=== PATIENT | male | born 1935 | race Caucasian/White ===

== ENCOUNTER 2019-12-10 18:57 | Inpatient (IN) | payer MEDICARE, SELFPAY ==
--- NOTE | ~2019-12-10 | CT_ITS ---
EXAMINATION: CT brain wo con DATE: 12/10/2019 20:23 INDICATION: Fall and altered mental status. TECHNIQUE: Computed tomography (CT) of the head was performed without intravenous contrast. Sagittal and coronal reconstructions were performed. The mA was adjusted according to patient size. Iterative reconstruction technique was employed. The dose-length product was 1513.33 mGy-cm. COMPARISON: head CT dated 12/09/18 FINDINGS: Evaluation is somewhat limited by motion artifact on both initial and repeat images. No fracture. Unc hanged small old lacunar infarcts at the left caudate and lentiform nuclei. No acute intracranial hem orrhage, acute infarction or abnormal extra axial fluid collection. There is mild scattered white mat ter hypoattenuation consistent with chronic small vessel ischemic disease. Symmetric prominence of th e sulci and ventricles consistent with moderate age-appropriate diffuse cerebral volume loss. No mass /mass effect. Changes of bilateral intraocular lens replacement. Orbits and paranasal sinuses are nor mal. Unchanged left mastoid effusion and new trace right mastoid effusion. IMPRESSION: 1. No fracture or acute intracranial process. 2. 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 3. Age-related changes including moderate diffuse loss and mild scattered white matter hypoattenuatio n consistent with chronic small vessel ischemic disease. Reviewed, dictated and finalized at location A. IMPRESSION: 1. No fracture or acute intracranial process. 2. Unchanged small old lacunar infarcts at the left caudate and lentiform nucle i. 3. Age-related changes including moderate diffuse loss and mild scattered white matter hypoattenuation consistent with chronic small vessel ischemic disease.
--- NOTE | ~2019-12-10 | XR_ITS ---
EXAMINATION: XR chest 1V portable DATE: 12/10/2019 21:01 INDICATION: Fall with transient alteration of awareness and hip fracture TECHNIQUE: frontal view of the chest was obtained. COMPARISON: Chest radiograph dated 03/12/2018 FINDINGS: Calcified biapical pleural-parenchymal scarring. A couple small bilateral calcified pulmonary nodules consistent with old granulomatous disease. No other airspace opacities, pulmonary edema, pleural eff usion or pneumothorax. The cardiomediastinal silhouette is normal. Severe bilateral glenohumeral oste oarthritis. IMPRESSION: 1. No acute cardiopulmonary disease. Reviewed, dictated and finalized at location A.
--- NOTE | ~2019-12-10 | CT_ITS ---
EXAMINATION: CT cervical spine wo con DATE: 12/10/2019 20:23 INDICATION: Fall with right hip fracture. Altered mental status. TECHNIQUE: Computed tomography (CT) of the cervical spine was performed without intravenous contrast. Automated exposure control and iterative reconstruction technique were employed. The dose-length pro duct was 1513.33 mGy-cm. COMPARISON: 03/17/2018 FINDINGS: Alignment is normal. Cervical vertebral body heights are normal. Chronic mild anterior wedging at T2 and T3. Severe disc height loss at C5-C6 and C6-C7. Mild disc height loss at C2-C3 at C3-C4 and T2-T3 and T3-T4. Severe uncovertebral osteoarthritis and posterior disc osteophyte complexes at C5-C6 and C6-C7 contribute to mild central canal stenosis and moderate bilateral neural foraminal stenosis at b oth levels. Multilevel moderate to severe bilateral cervical facet osteoarthritis. Partially calcifie d biapical pleural-parenchymal scarring. IMPRESSION: 1. Severe cervical spondylosis. No acute osseous abnormality. Reviewed, dictated and finalized at location A.
--- NOTE | ~2019-12-10 | XR_ITS ---
EXAMINATION: XR hip RT 2V w AP pelvis DATE: 12/10/2019 20:38 INDICATION: Right hip pain and fracture post fall TECHNIQUE: Anteroposterior view of the pelvis and anteroposterior and cross-table lateral views of th e right hip were obtained. COMPARISON: CT abdomen and pelvis dated 03/12/2018 FINDINGS: Comminuted intertrochanteric fracture of the proximal right femur. There is proximal migration of the right femur resulting in approximately 25 degrees varus and posterior angulation. There is also prox imal distraction of a separate lesser trochanteric fragment. No other fractures identified. Mild bila teral hip osteoarthritis. Diffuse osteopenia. IMPRESSION: 1. Displaced and angulated mildly comminuted intertrochanteric fracture the proximal right femur. Reviewed, dictated and finalized at location A. IMPRESSION: 1. Displaced and angulated mildly comminuted intertrochanteric fracture the pro ximal right femur.
[2019-12-10 18:57] VITALS: BP 116/63; PULSE 104; RESP 21; TEMP 37.7; O2SAT 100
[2019-12-10 19:30] VITALS: BP 97/49; PULSE 104; RESP 20; O2SAT 98
--- NOTE | 2019-12-10 19:53 | PC.NURSE ---
Patient became somewhat combative with attempts to start IV---when this RN spoke with Joshua at [facility] she explained that this is normal for this patient. Patient tolerated procedure as well as could be expected
[2019-12-10 19:56] LABS: Basophils Percent Auto 0.2 % (0.2-1.2); Hematocrit 32.6 % (42.0-52.0); Hemoglobin 11.2 g/dL (14.0-18.0); Immature Granulocyte Absolute 0.05 K/mm3 (0.00-0.031); Immature Granulocyte Percent A 0.3 % (0-0.5); Lymphocytes Absolute Auto 1.35 K/mm3 (0.9-3.2); Lymphocytes Percent Auto 8.5 % (18.3-44.2); Mean Corpuscular HGB Conc 34.4 g/dl (32-36); Mean Corpuscular Hemoglobin 29.9 pg (26-34); Mean Corpuscular Volume 87.2 fl (80-100); Mean Platelet Volume 10.1 fl (7.4-10.4); Monocytes Absolute Auto 1.3 K/mm3 (0.1-0.6); Monocytes Percent Auto 7.9 % (2.6-8.5); Neutrophils Absolute Auto 13.2 K/mm3 (1.3-6.7); Neutrophils Percent Auto 83.1 % (45.5-73.1); Platelet Count Result 274 k/mm3 (150-375); Red Blood Count 3.74 M/mm3 (4.6-6.20); Red Cell Distribution Width 13.6 % (11.5-14.5); White Blood Count 15.9 K/mm3 (4.5-10.0)
[2019-12-10 20:00] VITALS: BP 137/76; PULSE 111; RESP 20; O2SAT 98
--- NOTE | 2019-12-10 20:05 | ED.GENADULT ---
HPI - General Adult General Chief complaint: Extremity Injury, Lower Stated complaint: RIGHT HIP INJURY Time Seen by Provider: 12/10/19 19:15 Source: EMS History of Present Illness HPI narrative: Patient is brought in by EMS for hip fracture. Patient is non verbal and unable to provide any history. He reportedly had a possible unwitnessed fall. He appeared to have difficulty putting weight on right leg. Xray was done at his facility [facility] and it showed right IT fracture. Patient was then sent to ED for evaluation. Patient is non-verbal and unable to provide any additional history. Patient is DNR per records from [facility]. Related Data Home Medications Medication Instructions Recorded Confirmed Liquid Antacid 30 ml PO QID PRN 03/02/19 03/02/19 acetaminophen 650 mg PO Q4-6H PRN 03/02/19 03/02/19 aspirin 81 mg PO DAILY 03/02/19 03/02/19 bisacodyl 10 mg SC DAILY PRN 03/02/19 03/02/19 divalproex 125 mg PO DIRECTED 03/02/19 03/02/19 loperamide [Imodium A-D] 2 mg PO Q4H PRN MDD 8 tabs 03/02/19 03/02/19 magnesium hydroxide [Milk of 30 ml PO DAILY PRN 03/02/19 03/02/19 Magnesia] sertraline 25 mg PO 0800 03/02/19 03/02/19 verapamil 120 mg PO QPM 03/02/19 03/02/19 Allergies Allergy/AdvReac Type Severity Reaction Status Date / Time haloperidol Allergy Unknown Verified 12/10/19 19:24 Review of Systems Review of Systems: ROS unobtainable: Yes unobtainable due to medical condition [facility] Past Medical History Medical History Anxiety CAD (coronary artery disease) Cataracts, bilateral Dementia Depression History of inguinal hernia Hypercholesteremia Parkinsons Rotator cuff tear [facility] Surgical History Surgical History History of cataract surgery [facility]ERY History of inguinal hernia repair Hx of cardiac cath Hx of rotator cuff surgery Family History Family History Other Unknown family medical history Social History Social History Smoking status: Never smoker Gender identity (if verbalized by the patient): Male Spiritual care concerns: No Exam Const: General: no acute distress, ill appearing and lethargic HENMT: Head: normocephalic Ears: external ears normal General nose exam: Normal external nose present Eyes: General: appearance normal, both eyes and all related structures Conjunctivae: conjunctivae normal Neck: Neck: normal visual inspection and full ROM Chest: Chest palpation & inspection: normal inspection of the chest and no tenderness Resp: Effort & Inspection: normal respiratory effort Auscultation: clear to auscultation bilaterally Cardio: Rate: tachycardic Rhythm: regular rhythm GI: GI Palp: No abdominal tenderness and Yes Soft to palpation Skin: General skin exam: normal color and turgor normal Neuro: Speech: Other speech findings present (Neuro) (non verbal) Extrem: General: normal to inspection and edema bilateral Psych: Appearance: grossly normal Mental Status: mental status grossly normal Affect: normal affect Course Consultations Consultation #1: Discussed with Dr. Benitez, who agrees to consult and recommends admitting to hospitalist. Date: 12/10/19 Time: 21:03 Consultation #2: Discussed with Dr. Ga, who agrees to admit. Date: 12/10/19 Time: 21:30 Vital Signs Vital signs: Vital Signs Temperature 37.7 C H 12/10/19 18:57 Pulse Rate 104 H 12/10/19 18:57 Respiratory Rate 21 H 12/10/19 18:57 Blood Pressure 116/63 12/10/19 18:57 Pulse Oximetry 100 12/10/19 18:57 Temperature 37.7 C H 12/10/19 18:57 Pulse Rate 110 H 12/10/19 23:00 Respiratory Rate 20 12/10/19 23:00 Blood Pressure 113/76 12/10/19 23:00 Pulse Oximetry 98 12/10/19 23:00 Medical Decision Making Vital Signs Vital Signs: Vital Signs Temperature 37.7 C
[2019-12-10 20:06] LABS: Partial Thromboplastin Time 25.6 SECONDS (22.3-36.8)
[2019-12-10 20:07] LABS: Alanine Aminotransferase 16 U/L (4-50); Albumin Level 3.4 g/dL (3.5-5.1); Alkaline Phosphatase 87 U/L (38-126); Anion Gap 8 mmol/L (8-16); Aspartate Amino Transferase 28 U/L (17-59); Bilirubin,Total 0.3 mg/dL (0.2-1.3); Blood Urea Nitrogen 35 mg/dL (9-20); Calcium 8.9 mg/dL (8.4-10.2); Carbon Dioxide 29 mmol/L (22-30); Chloride 97 mmol/L (98-107); Estimated CRCL calculation 27 ml/min; Estimated Glomerular Filt Rate 41; Glucose 158 mg/dL (75-110); Potassium 4.7 mmol/L (3.4-5.0); Sodium 134 mmol/L (137-145)
[2019-12-10 20:11] LABS: INR 1.1; Prothrombin Time 14.1 Seconds (11.1-14.7)
[2019-12-10 21:30] VITALS: BP 180/100; PULSE 115; RESP 23; O2SAT 100
--- NOTE | 2019-12-10 21:52 | PM.IMHP ---
H&P: HPI History of Present Illness Date/Time: 12/10/19 21:52 Chief complaint: right hip fracture Narrative: This is an 84 year old severely demented male with known history of Parkinson's disease who presented to the the [facility] after being found down at the skilled nursing today. The patient's son is at bedside and he isn't sure about the specifics of the patient's injury as it appears to have been unwitnessed. The patient is normally alert and oriented only to himself although he has been medicated in the ER [facility] with ativan to obtain CT scans. On my encounter with the patient he is nonverbal and cannot contribute to his history. Hip xray films demonstrated a displaced and angulated mildly comminuted intertrochanteric fracture the proximal right femur. Ortho, Dr. Degroot has been consulted by ER provider and has asked that we admit the patient to the hospital so he can evaluate him in the morning. Review of Systems Review of Systems: ROS unobtainable: Yes unobtainable due to mental status [facility] Past Medical History Medical History Anxiety CAD (coronary artery disease) Cataracts, bilateral Dementia Depression History of inguinal hernia Hypercholesteremia Parkinsons Rotator cuff tear VALERY Surgical History Surgical History History of cataract surgery VALERY History of inguinal hernia repair Hx of cardiac cath Hx of rotator cuff surgery Family History Family History Other Unknown family medical history Social History Social History Smoking status: Never smoker Gender identity (if verbalized by the patient): Male Spiritual care concerns: No Meds Home Medications and Allergies Home Medications Medication Instructions Recorded Confirmed Type aspirin 81 mg PO DAILY 03/02/19 12/11/19 History divalproex 125 mg PO DIRECTED 03/02/19 12/11/19 History verapamil 120 mg PO QPM 12/11/19 12/11/19 History Allergies Allergy/AdvReac Type Severity Reaction Status Date / Time haloperidol Allergy Unknown Verified 12/10/19 19:24 Vital Signs Vital Signs - 24 hr 12/10/19 18:57 Temperature 37.7 C H Pulse Rate 104 H Respiratory Rate 21 H Blood Pressure 116/63 Pulse Oximetry 100 Exam Const: General: ill appearing, patient obtunded and tired appearing Nutritional Appearance: thin and underweight Orientation/consciousness: patient obtunded and Other orientation findings (Demented++ ) HENMT: Head: normal to inspection General nose exam: Normal external nose present Face and sinus: normal facial exam Mouth: Yes Normal oral and palatal mucosa present and Yes oropharynx normal Eyes: Pupils: Equal, round and reactive pupils present Neck: Neck: supple and no JVD Thyroid: thyroid normal Lymphatic: lymphadenopathy not noted Resp: Effort & Inspection: normal respiratory effort Auscultation: clear to auscultation bilaterally Cardio: Rate: regular rate Rhythm: regular rhythm Heart sounds: no murmurs GI: Inspection: normal to inspection Auscultation: normal bowel sounds Skin: General skin exam: normal color and no rashes or lesions noted Neuro: Cranial nerves: Yes Equal, round and reactive pupils present Speech: Global aphasia present Extrem: General: no edema and other (RLE - shortened and externally rotated++ ) H&P: Results Labs Labs: Short CBC 12/10/19 Range/Units 19:50 WBC 15.9 H (4.5-10.0) K/mm3 Hgb 11.2 L D (14.0-18.0) g/dL Hct 32.6 L (42.0-52.0) % Plt Count 274 (150-375) k/mm3 BMP 12/10/19 19:50 Sodium 134 L Potassium 4.7 Chloride 97 L Carbon Dioxide 29 BUN 35 H D Creatinine 1.60 H Glucose 158 H Calcium 8.9 Liver Function 12/10/19 Range/Units 19:50 Total Bilirubin 0.3 (0.2-1.3) mg/dL AST 28 (17-59) U/L ALT 1
[2019-12-10 23:00] VITALS: BP 113/76; PULSE 110; RESP 20; O2SAT 98
[2019-12-11] VITALS: BP 149/71; PULSE 112; RESP 16; TEMP 37.7; O2SAT 97; BMI 19.4
[2019-12-11] MEDS: SODIUM CHLORIDE 0.45% 1,000 ML 100 ML IV CONT ×3 (01:02→20:25)
[2019-12-11 01:03] VITALS: TEMP 37.7
[2019-12-11 01:30] VITALS: TEMP 37.2
[2019-12-11 01:42] LABS: Add Urine Microscopic? YES; Appearance Urine Clear (Clear); Bilirubin Urine Negative (Negative); Blood Urine 2+ (Negative); Color Urine Yellow (Yellow); Glucose Urine UA Negative (Negative); Ketones Urine Negative (Negative); Leukocyte Esterase Ur Negative LEU/UL (Negative); Mucus Urine Rare /lpf; Nitrate Urine Negative (Negative); Protein Urine 1+ mg/dL (Negative); RBC Urine 21-50 /hpf (0-2); Specific Grav Ur 1.023 (1.001-1.035); Squamous Epithelial Cell Urine Occasional /hpf (Few); Urobilinogen Urine Negative mg/dL (<2.0); WBC Urine 0-3 /hpf
--- NOTE | 2019-12-11 03:16 | PC.NURSE ---
This patient, Swapnil Becerril, was admitted to [facility] Surg Room 306-01. Patient/family oriented to hospital policies and general routines including ID bracelet, bed and alarms, visiting hours, pain management, procedures, bathroom and other care routines, personal items, smoking policy, room service/diet, and visiting hours. Valuables list has been completed. Information on how to activate the Rapid Response Team has been discussed. Patient/Family are encouraged to report perceived risks to care and to ask questions if they do not understand what they are told or what they should do.
[2019-12-11 06:00] VITALS: BP 151/77; PULSE 94; RESP 18; TEMP 36.6; O2SAT 98
[2019-12-11 06:13] LABS: Basophils Percent Auto 0.1 % (0.2-1.2); Hematocrit 29.3 % (42.0-52.0); Hemoglobin 9.8 g/dL (14.0-18.0); Immature Granulocyte Absolute 0.07 K/mm3 (0.00-0.031); Immature Granulocyte Percent A 0.5 % (0-0.5); Lymphocytes Absolute Auto 2.26 K/mm3 (0.9-3.2); Lymphocytes Percent Auto 15.9 % (18.3-44.2); Mean Corpuscular HGB Conc 33.4 g/dl (32-36); Mean Corpuscular Hemoglobin 29.5 pg (26-34); Mean Corpuscular Volume 88.3 fl (80-100); Mean Platelet Volume 10.2 fl (7.4-10.4); Monocytes Absolute Auto 1.3 K/mm3 (0.1-0.6); Monocytes Percent Auto 8.8 % (2.6-8.5); Neutrophils Absolute Auto 10.6 K/mm3 (1.3-6.7); Neutrophils Percent Auto 74.7 % (45.5-73.1); Platelet Count Result 244 k/mm3 (150-375); Red Blood Count 3.32 M/mm3 (4.6-6.20); Red Cell Distribution Width 13.9 % (11.5-14.5); White Blood Count 14.2 K/mm3 (4.5-10.0)
[2019-12-11 06:29] LABS: Anion Gap 7 mmol/L (8-16); Blood Urea Nitrogen 36 mg/dL (9-20); Calcium 8.6 mg/dL (8.4-10.2); Carbon Dioxide 29 mmol/L (22-30); Chloride 98 mmol/L (98-107); Estimated CRCL calculation 26 ml/min; Estimated Glomerular Filt Rate 45; Glucose 128 mg/dL (75-110); Potassium 4.5 mmol/L (3.4-5.0); Sodium 134 mmol/L (137-145)
--- NOTE | 2019-12-11 11:24 | PM.IMPN ---
Progress Note: A&P Assessment and Plan (1) Closed right hip fracture: Qualifiers: Encounter type: initial encounter Qualified Code(s): S72.001A - Fracture of unspecified part of neck of right femur, initial encounter for closed fracture Code(s): S72.001A - Fracture of unspecified part of neck of right femur, initial encounter for closed fracture Status: Acute Assessment and Plan: Unclear if patient had unwitnessed fall or not. Pain control as needed Cuellar catheter. IV fluids. Dr. Hwang has been consulted from ED; appreciate rec; await further rec SCDs on unaffected limb NPO diet until okay to eat per Ortho (2) Dementia: Qualifiers: Dementia type: Parkinson's disease Dementia behavioral disturbance: with behavioral disturbance Qualified Code(s): G20 - Parkinson's disease; F02.81 - Dementia in other diseases classified elsewhere with behavioral disturbance Code(s): F03.90 - Unspecified dementia without behavioral disturbance Status: Chronic Assessment and Plan: stable. At his baseline. Typically nonverbal (3) Parkinsons: Code(s): G20 - Parkinson's disease Status: Chronic Assessment and Plan: Continue home meds in am. (4) Essential (primary) hypertension: Code(s): I10 - Essential (primary) hypertension Status: Acute Assessment and Plan: BP 150s sys Continue home verapamil Monitor BP (5) REFUGIO (acute kidney injury): Code(s): N17.9 - Acute kidney failure, unspecified Status: Acute Assessment and Plan: Likely secondary to hypovolemia/dehydration. Cr improved to 1.50 Monitor BMP Continue IVF until tolerating diet Subjective Date/time seen: 12/11/19 11:24 Interval history: Patient is a frail 84 yo M with history of advanced dementia (nonverbal), Parkinson disease, CAD, and depression who is here for evaluation for right IT fracture after sustaining an unwitnessed fall per EMR. Son is unsure about any fall, but was mentioned to him that his gait was off. As above, patient is nonverbal at baseline and history of ROS is unobtainable. PAtient Lying comfortably in bed, sleeping, but arousable to name. Son states he is unsure how much walking the patient does anymore at the MI. No other history/ros obtainable at this time Review of Systems Review of Systems: All systems reviewed & are unremarkable except as noted in HPI and below ROS unobtainable: Yes unobtainable due to mental status Exam Narrative: Exam Narrative: General: Frail, thin male sleeping supine in bed in no acute distress. Wakes to verbal stimuli, but does not answer any questions HEENT: Normocephalic, oral mucosa dry Cardiovascular: Rate and rhythm are regular. No notable murmur, rub, or gallop. Respiratory: Lungs clear to auscultation in anterolateral lung farias. Non-labored breathing. Abdomen: Firm, scaphoid abdomen, non-tender, although patient lifts blanket over head after palpating abdomen, non-distended, BS present Extremities: Peripheral pulses intact. Pedal edema right foot. Unable to evaluate right hip given patient slightly rotated onto that side. Right leg is extended. Neuro: Moves all extremities Objective Data Vital Signs Vital Signs: Last Vital Signs Temp 97.8 F 12/11/19 06:00 Pulse 94 12/11/19 06:00 Resp 18 12/11/19 06:00 BP 151/77 H 12/11/19 06:00 Pulse Ox 98 12/11/19 06:00 Intake/Output Intake/Output: Intake & Output 12/08/19 12/09/19 12/10/19 12/11/19 23:59 23:59 23:59 23:59 Intake Total 1003 Output Total 400 Balance 603 Meds/Results Medications: Active Medications Generic Name Dose Route Start Last Admin Trade Name Freq PRN Reason Stop Dose Admin Divalproex Sodium 250 mg
[2019-12-11 15:58] VITALS: BP 129/65
--- NOTE | 2019-12-11 17:21 | CONS_ITS ---
DATE OF CONSULTATION: 12/10/2019 HISTORY OF PRESENT ILLNESS: This is an 84-year-old gentleman, who was found in his custodial and he was on the floor and he was in pain in his right hip region. He then was brought to [facility] and ER evaluation found that he had a right intertrochanteric femur fracture and Orthopedic consultation was requested. He was admitted to the hospital to the medicine service and evaluated. He has severe dementia. He does have some other medical problems as well, but he complains of hip pain and does not complain of any other pain. PAST MEDICAL HISTORY: Anxiety, coronary artery disease, cataract, dementia, depression, Parkinson's, inguinal hernia, rotator cuff tear. SURGICAL HISTORY: Cataract surgery, inguinal hernia, cardiac cath, history of rotator cuff surgery. SOCIAL HISTORY: He apparently has never smoked and he does not take any alcohol. He lives in a custodial facility. MEDICATIONS: 1. Aspirin. 2. Divalproex. 3. Verapamil. ALLERGIES: HALOPERIDOL. REVIEW OF SYSTEMS: He does not communicate, so the review of systems is unobtainable. PHYSICAL EXAMINATION: The right hip was examined with passive range of motion. He does have pain in the groin. He does not follow any commands. He spontaneously plantar flexes the right foot, but he does not dorsiflex the right foot. He has no tenderness in the thigh, except it is really proximal in the hip region. The rest of the thigh is nontender. The knee joint is nontender. He has no pain with passive motion of the knee joint. He has no instability on this limited exam. He has no tenderness in tib-fib or foot and ankle. Dorsalis pedis pulse is 1+ and posterior tib pulse is 1+. The left hip was examined. He has no pain with passive motion of the left hip. He has no tenderness in the thigh. He has no tenderness in the knee joint. No obvious effusion. No instability. No tenderness to the tib-fib or foot and ankle. The upper extremity examination shows no tenderness to the clavicles, shoulders, arms, elbows, forearms, wrist, and hand. Neck examination shows nontender. He has no pain with the limited range of motion that we assess from passive motion. Thoracic spine is nontender. Lumbar spine and sacrococcygeal nontender. IMPRESSION: Right intertrochanteric femur fracture. X-rays were reviewed. The fracture was highly comminuted. The procedure would need to be the insertion of the gamma jocelyne with a sliding hip screw. I spoke to the patient and there was little understanding of what I was saying, so I spoke to the son and we discussed the options for the patient. One option from a surgical standpoint is to insert the gamma jocelyne and hip screw and stabilize the fractures. The patient can have hygiene and he can get up comfortably to a chair and have dinner and meals. If he does not have surgery, he most likely will be difficult to manage as far as his hygiene. He will have a difficult time sitting in a chair and he may at some point require hospice, if he is in too much pain. The other option is to go straight to hospice and that would be up to the family. I did speak at length about his problem. He would like to talk over with the rest of the family and he will call the hospital tomorrow or come here personally. The patient's family will be addressing his caregivers at that point. Decision of the family is made together. So we will await the family member to give his opinion about surgical versus nonsurgical treatment and at this point, we will continue to observe for any change in plans. DEVI ALMODOVAR M.D. RECOVERY AUDITOR RECOVERY AUDITOR D I
[2019-12-11] MEDS: VERAPAMIL HCL ER 120 MG TABLET PO (17:22)
[2019-12-11 22:00] VITALS: BP 127/56; PULSE 91; RESP 20; TEMP 37.2; O2SAT 98
[2019-12-12 05:44] VITALS: TEMP 37.7
[2019-12-12] MEDS: SODIUM CHLORIDE 0.45% 1,000 ML 100 ML IV CONT (05:44)
[2019-12-12 05:53] VITALS: BP 156/76; PULSE 92; RESP 20; TEMP 37.7; O2SAT 97
[2019-12-12 06:14] VITALS: TEMP 36.9
[2019-12-12 06:25] LABS: Basophils Percent Auto 0.3 % (0.2-1.2); Eosinophils Absolute Auto 0.1 K/mm3 (0-0.3); Eosinophils Percent Auto 0.6 % (0-4.4); Hematocrit 26.5 % (42.0-52.0); Hemoglobin 8.9 g/dL (14.0-18.0); Immature Granulocyte Absolute 0.05 K/mm3 (0.00-0.031); Immature Granulocyte Percent A 0.4 % (0-0.5); Lymphocytes Absolute Auto 1.47 K/mm3 (0.9-3.2); Mean Corpuscular HGB Conc 33.6 g/dl (32-36); Mean Corpuscular Hemoglobin 29.7 pg (26-34); Mean Corpuscular Volume 88.3 fl (80-100); Mean Platelet Volume 10.1 fl (7.4-10.4); Monocytes Percent Auto 7.8 % (2.6-8.5); Neutrophils Absolute Auto 9.6 K/mm3 (1.3-6.7); Neutrophils Percent Auto 78.9 % (45.5-73.1); Platelet Count Result 223 k/mm3 (150-375); Red Cell Distribution Width 13.9 % (11.5-14.5); White Blood Count 12.2 K/mm3 (4.5-10.0)
[2019-12-12 07:20] LABS: Anion Gap 5 mmol/L (8-16); Blood Urea Nitrogen 22 mg/dL (9-20); Calcium 8.1 mg/dL (8.4-10.2); Carbon Dioxide 30 mmol/L (22-30); Chloride 98 mmol/L (98-107); Estimated CRCL calculation 39 ml/min; Estimated Glomerular Filt Rate > 60; Glucose 103 mg/dL (75-110); Sodium 133 mmol/L (137-145)
[2019-12-12 14:00] VITALS: BP 147/85; PULSE 81; RESP 16; TEMP 36.8; O2SAT 100
[2019-12-12] MEDS: SODIUM CHLORIDE 0.9% IV 1,000 ML 75 ML IV CONT (15:21)
--- NOTE | 2019-12-12 16:07 | PM.IMPN ---
Progress Note: A&P Assessment and Plan (1) Dementia: Qualifiers: Dementia behavioral disturbance: with behavioral disturbance Dementia type: Parkinson's disease Qualified Code(s): G20 - Parkinson's disease; F02.81 - Dementia in other diseases classified elsewhere with behavioral disturbance Code(s): F03.90 - Unspecified dementia without behavioral disturbance Status: Chronic Assessment and Plan: Patient has severe, advanced dementia. The patient's son, Edu, has opted to proceed with hospice care with [facility]. He will be set up with hospice at his assisted living memory care facility at [facility]. Hopeful discharge to hospice tomorrow upon delivery of equipment to assisted living facility. (2) Encounter for hospice care: Code(s): Z51.5 - Encounter for palliative care Status: Acute Assessment and Plan: Hospice care has been arranged via [facility]. Plan for discharge tomorrow to [facility] assisted-living Memory Care with hospice. No surgical intervention will be performed. (3) Closed right hip fracture: Qualifiers: Encounter type: initial encounter Qualified Code(s): S72.001A - Fracture of unspecified part of neck of right femur, initial encounter for closed fracture Code(s): S72.001A - Fracture of unspecified part of neck of right femur, initial encounter for closed fracture Status: Acute Assessment and Plan: Unclear if patient had unwitnessed fall or not. Pain control as needed Cuellar catheter. IV fluids. Dr. Hwang has been consulted from ED; appreciate rec; patient's family has opted to proceed with hospice, therefore surgical management will not be performed SCDs on unaffected limb (4) Parkinsons: Code(s): G20 - Parkinson's disease Status: Chronic Assessment and Plan: Chronic. No intervention at this time (5) Essential (primary) hypertension: Code(s): I10 - Essential (primary) hypertension Status: Acute Assessment and Plan: Blood pressure evaluated today and is stable. BP 140s systolic. Continue home verapamil Monitor BP (6) REFUGIO (acute kidney injury): Code(s): N17.9 - Acute kidney failure, unspecified Status: Acute Assessment and Plan: Likely secondary to hypovolemia/dehydration. Cr improved to 1.0 Continue IV fluids as patient has poor p.o. intake. Given hospice arrangement, I will not repeat a.m. labs to monitor renal function. Subjective Date/time seen: 12/12/19 16:07 Interval history: Patient is a frail 84 yo M with history of advanced dementia (nonverbal), Parkinson disease, CAD, and depression who is here for evaluation for right IT fracture after sustaining an unwitnessed fall per EMR. Today patient is awake but remains nonverbal. He will track me around the room with his eyes. He does not follow any commands. He nods occasionally in response. When asked if he wanted breakfast, he nodded yes but then refused to eat when attempted to feed. He has had poor PO intake. He is unable to indicate if he is in pain. He is laying in bed with most of his weight on the right hip. His legs are contracted. Per discussion with care coordination, patient's son and family have opted to proceed with Hospice care at assisted living facility. Review of Systems Review of Systems: Narrative: A 12 point review of systems was reviewed with pertinent positives and negatives as per HPI. Exam Narrative: Exam Narrative: Mr. Becerril is a thin, frail, chronically ill appearing 84 year old male who is lying on his right side in a contracted position. He appears comfortable and in NAD. HR 92, BP 156/76, R 20, T 98.5?, 97% on room air Neuro: awake, responds to verbal stimuli, does not answer questions or follow commands HEENMT: normocephalic, atraumatic, EOMI, sclerae anicteric, dryoral mucosa Neck: supple, no lymphad
[2019-12-12 22:00] VITALS: BP 157/79; PULSE 101; RESP 16; TEMP 36.4; O2SAT 97
[2019-12-13] MEDS: SODIUM CHLORIDE 0.9% IV 1,000 ML 75 ML IV CONT (02:07)
[2019-12-13 06:00] VITALS: BP 132/58; PULSE 84; RESP 16; TEMP 37.2; O2SAT 97
[2019-12-13 12:41] LABS: SARS-CoV-2 RNA PCR Negative
--- NOTE | 2019-12-13 13:26 | PM.DS ---
DS: Admitting Diagnosis Admitting Diagnosis Admitting Diagnosis: right hip fracture DS: Discharge Diagnosis Discharge Diagnosis (1) Encounter for hospice care: Code(s): Z51.5 - Encounter for palliative care Status: Acute Assessment and Plan: Hospice care has been arranged via [facility]. Patient was discharged to [facility] with hospice. (2) Dementia: Qualifiers: Dementia behavioral disturbance: with behavioral disturbance Dementia type: Parkinson's disease Qualified Code(s): G20 - Parkinson's disease; F02.81 - Dementia in other diseases classified elsewhere with behavioral disturbance Code(s): F03.90 - Unspecified dementia without behavioral disturbance Status: Chronic Assessment and Plan: Patient has severe, advanced dementia. The patient's son, Edu, has opted to proceed with hospice care with [facility]. He will be set up with hospice at his assisted living memory care facility at [facility]. Equipment been delivered to his assisted living facility prior to his discharge. (3) Closed right hip fracture: Qualifiers: Encounter type: initial encounter Qualified Code(s): S72.001A - Fracture of unspecified part of neck of right femur, initial encounter for closed fracture Code(s): S72.001A - Fracture of unspecified part of neck of right femur, initial encounter for closed fracture Status: Acute Assessment and Plan: Unclear if patient had unwitnessed fall or not. He was seen in consultation by Dr. Hwang. The patient was felt to be a poor surgical candidate, and ultimately hospice care was chosen. No further workup was pursued. (4) Parkinsons: Code(s): G20 - Parkinson's disease Status: Chronic Assessment and Plan: Chronic. No intervention at this time (5) Essential (primary) hypertension: Code(s): I10 - Essential (primary) hypertension Status: Acute Assessment and Plan: Blood pressures were reviewed and remained stable. Continue home verapamil. (6) REFUGIO (acute kidney injury): Code(s): N17.9 - Acute kidney failure, unspecified Status: Acute Assessment and Plan: Likely secondary to hypovolemia/dehydration. Creatinine at presentation was 1.6 and improved to 1.0 with IV fluids. Patient had poor p.o. intake. DS: Summary Hospital Course Reason for hospitalization: Fall Hospital Course: date of admission: 12/10/2019 date of discharge: 12/13/2019 Swapnil Becerril is an 84 year old severely demented male with known history of Parkinson's disease who presented to the hospital on 12/09 after being found down at the shelter. He was accompanied by his son who was unsure about the specifics of the patient's injury as it appears the fall was unwitnessed. The patient is normally alert and oriented only to himself but upon arrival and throughout his stay, he was entirely nonverbal. At presentation, patient had low grade fever at 99.9 and was tachy in the 105-110s, WBC 15.9, BUN 35, creatinine 1.6, and hip x-ray with displaced and angulated mildly comminuted intertrochanteric fracture of the right proximal femur. He was admitted to the hospitalist service for further evaluation and management and was seen in consultation by orthopedics. Both surgical and conservative management were discussed with the patient's son. Patient's son chose to proceed with hospice care, and therefore no surgical management was performed. Patient was accepted by [facility] and was scheduled to be evaluated by hospice at [facility] upon discharge. He was discharged in hemodynamically stable condition on 12/13/2019 to [facility] assisted living memory care. Status at Discharge Functional status at discharge: bed bound Overall status at discharge: patient is not back to baseline Time Spent with Patient Time attestation: Total time spent providing
[2019-12-13 14:00] VITALS: BP 140/72; PULSE 94; RESP 16; TEMP 36.7; O2SAT 98
== END 2019-12-13 16:00 | disposition hospice, inpatient (51) | DRG 536 ==
LOC: ANHED 23:17 → ANH3MEDSUR 12-11 07:01
PROVIDERS: Internal Medicine; Physician Assistant; Admitting Provider Family Medicine; Emergency Provider Emergency Medicine; PCP Internal Medicine; Visit Provider Physician Assistant
DX: S72.141A Displaced intertrochanteric fracture of right femur, initial encounter for closed fracture (principal); N17.9 Acute kidney failure, unspecified; W19.XXXA Unspecified fall, initial encounter; Y92.122 Bedroom in nursing home as the place of occurrence of the external cause; I25.10 Atherosclerotic heart disease of native coronary artery without angina pectoris; F41.9 Anxiety disorder, unspecified; E78.00 Pure hypercholesterolemia, unspecified; G20 Parkinson's disease; F02.80 Dementia in other diseases classified elsewhere, unspecified severity, without behavioral disturbance, psychotic disturbance, mood disturbance, and anxiety; Z20.828 Contact with and (suspected) exposure to other viral communicable diseases; I10 Essential (primary) hypertension; E86.0 Dehydration
CPT/HCPCS: 36415; 70450; 71045; 72125; 73502; 80048; 80053; 81001; 83735; 85025; 85610; 85730; 87635; 96374; 99285; A9270; C9803; J0131; J2060; J7030; U0003